=== PATIENT | female | born 1955 | race Caucasian/White ===

== ENCOUNTER 2017-11-29 07:21 | Emergency (ER) | payer MEDICARE ==
[~2017-11-29] VITALS: Ht 157.5 cm; Wt 52.4 kg
[2017-11-29 07:24] VITALS: BP 162/90
[2017-11-29] MEDS ORDERED: BACITRACIN ZINC OINT 500U/GM, 0.9 GM ONE (08:28)
== END 2017-11-29 08:44 | disposition home or self-care (01) ==
LOC: ED 08:00
DX: M25.774 Osteophyte, right foot (principal); Z76.0 Encounter for issue of repeat prescription; J44.9 Chronic obstructive pulmonary disease, unspecified
CPT/HCPCS: 99283

== ENCOUNTER 2018-04-05 11:39 | Emergency (ER) | payer MEDICARE ==
[~2018-04-05] VITALS: Ht 157.5 cm; Wt 51.4 kg
[2018-04-05 12:28] VITALS: BP 144/83
== END 2018-04-05 13:50 | disposition home or self-care (01) ==
LOC: ED 13:33
DX: S00.33XA Contusion of nose, initial encounter (principal); J44.9 Chronic obstructive pulmonary disease, unspecified; Y08.89XA Assault by other specified means, initial encounter; Y93.89 Activity, other specified; Y92.89 Other specified places as the place of occurrence of the external cause; Y99.8 Other external cause status
CPT/HCPCS: 70486; 99284

== ENCOUNTER 2018-04-07 02:16 | Emergency (ER) | payer MEDICARE ==
[~2018-04-07] VITALS: Ht 157.5 cm; Wt 52.8 kg
[2018-04-07 02:19] VITALS: BP 161/82
== END 2018-04-07 03:15 | disposition home or self-care (01) ==
LOC: ED 02:51
DX: Z00.00 Encounter for general adult medical examination without abnormal findings (principal); Z76.0 Encounter for issue of repeat prescription; J44.9 Chronic obstructive pulmonary disease, unspecified
CPT/HCPCS: 99281

== ENCOUNTER 2018-05-01 16:23 | Emergency (ER) | payer MEDICARE ==
[~2018-05-01] VITALS: Ht 157.5 cm; Wt 49.3 kg
[2018-05-01 16:25] VITALS: BP 145/87
[2018-05-01] MEDS ORDERED: EFFEXOR PO (16:57)
== END 2018-05-01 17:05 | disposition home or self-care (01) ==
LOC: ED 16:45
DX: B34.9 Viral infection, unspecified (principal); J44.9 Chronic obstructive pulmonary disease, unspecified
CPT/HCPCS: 99283

== ENCOUNTER 2018-06-09 00:30 | Emergency (ER) | payer SELFPAY ==
[~2018-06-09] VITALS: Ht 157.5 cm; Wt 47.4 kg
[~2018-06-09 00:30] MED LIST: EFFEXOR PO
[2018-06-09 00:32] VITALS: BP 163/102
[2018-06-09] MEDS ORDERED: SILVER SULF. CRM 1% , 25GM ONE (00:48)
[2018-06-09] MEDS ORDERED: SILVER SULF. CRM 1% , 25GM TP ONE (01:00)
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
== END 2018-06-09 01:13 | disposition home or self-care (01) ==
LOC: ED 01:00
DX: T23.202A Burn of second degree of left hand, unspecified site, initial encounter (principal); T31.0 Burns involving less than 10% of body surface; J44.9 Chronic obstructive pulmonary disease, unspecified; X08.8XXA Exposure to other specified smoke, fire and flames, initial encounter; Y93.89 Activity, other specified; Y92.89 Other specified places as the place of occurrence of the external cause; Y99.8 Other external cause status
CPT/HCPCS: 16020; 99284